=== PATIENT | male | born 1950 | race Caucasian/White ===

== ENCOUNTER 2019-03-24 11:47 | Observation (INO) ==
[2019-03-24] MEDS ORDERED: 0.9 % Sodium Chloride 500 ML IVC ONE (12:38)
--- NOTE | 2019-03-24 12:41 | Emergency Department Note ---
Disposition Clinical Impression: General weakness, Elevated troponin Disposition: Admitted As Inpatient Condition: Fair Referrals: Jeremy Hyde DO [Primary Care Provider] - Forms: ED Satisfaction Letter, Work/School Release Time of Disposition: 16:28 General Adult HPI - General Chief complaint: ED General Medical Stated complaint: gen weakness, fluctuating bp Time Seen by Provider: 03/24/19 12:28 Source: patient Mode of arrival: private vehicle Limitations: no limitations Nursing Notes Reviewed: Yes Vital Signs Reviewed: Yes - History of Present Illness Pt Subjective Complaint: Generalized weakness Onset (ago): day(s) (This is the second day) Location: other (Generalized) Pain Severity: severe (He rates it as severe yesterday. Today he feels better than he did yesterday but he still feels like he does not have energy.) Consistency: constant, Improving Improves with: rest Worsens with: other (Exertion) Associated symptoms: Reports: denies other symptoms, other (Currently denies any other associated symptoms. He does report that Monday he had some edema to his bilateral lower extremities after being out side and doing all kinds the yard work. By Monday the edema in the legs had gone but the generalized weakness had begun) - Related Data Home Medications Medication Instructions Recorded Confirmed Acetaminophen w/Cod 300-30 mg 1 each PO Q6HR PRN 03/13/18 03/24/19 [Tylenol w/Codeine #3] Aspirin Enteric Coated [Aspirin EC] 81 mg PO DAILY 03/13/18 03/24/19 Chlorzoxazone [Lorzone] 500 mg PO DAILY 03/13/18 03/24/19 Furosemide [Lasix] 40 mg PO DAILY 03/13/18 03/24/19 NIFEdipine XL (24 HR) [Procardia 30 mg PO DAILY 03/13/18 03/24/19 XL] Omeprazole [PriLOSEC] 20 mg PO DAILY 03/13/18 03/24/19 Propranolol HCl [Inderal LA] 120 mg PO DAILY 03/13/18 03/24/19 Simvastatin [Zocor] 40 mg PO HS 03/13/18 03/24/19 Trazodone HCl 100 mg PO DAILY 03/13/18 03/24/19 Allergies Allergy/AdvReac Type Severity Reaction Status Date / Time No Known Allergies Allergy Verified 03/13/18 00:21 All systems ED: reviewed and negative except as stated. Constitutional: Denies: fever, chills ENT ED: Denies: ear pain, throat pain, congestion Cardiovascular: Denies: chest pain, palpitations Respiratory: Denies: cough, dyspnea, wheezes Gastrointestinal: Denies: abdominal pain, nausea, vomiting, diarrhea Genitourinary: Denies: urgency, dysuria, frequency Musculoskeletal: Denies: back pain Integumentary: Denies: rash Neurological: Denies: headache, numbness, paresthesias Past Medical History - Past Medical History Attestation: Yes The following information was validated with the patient. Source: patient, old records reviewed, obtained from family, nursing notes reviewed Medical history: Reports: aortic aneurysm, cardiomyopathy, CHF, diabetes, hyperlipidemia, hypertension, myocardial infarction, TIA, valvular heart disease Psychiatric history: Reports: no psych history - Social History Smoking Status: Former smoker Smokeless Tobacco Status: No Alcohol use: Reports: rarely Drug use: Reports: none Physical Exam - General Limitations: no limitations General appearance: alert, in no apparent distress - Head Head exam: atraumatic, normocephalic, normal inspection - Eye Eye exam: Present: normal appearance, PERRL, EOMI. Absent: scleral icterus, conjunctival injection - ENT ENT exam: normal exam, normal oropharynx, mucous membranes moist, TM's normal bilaterally, normal external ear exam - Neck Neck exam: Present: normal inspection, full ROM, trachea midline. Absent: meningismus - Chest Chest inspection: Present: normal inspection, symmetric chest wall rise. Absent: tenderness - Respiratory Respiratory exam: Present: normal lung sounds bilaterally. Absent: respiratory distress, wheezes - Cardiovascular Cardiovascular exam: Present: regular rate, normal rhythm, normal heart sounds - Abdominal Exam Abdominal exam: Present: soft, Non-Tender, normal bowel sounds. Absent: distention - Extremities Exam Extremities exam: Present: normal inspection. Absent: tenderness, pedal edema - Neurological Exam Neurological exam: Present: alert, oriented X3. Absent: motor sensory deficit - Psychiatric Psychiatric exam: Present: normal affect, normal mood - Skin Skin exam: Present: warm, dry. Absent: rash Course Course Narrative: Patient presents with generalized weakness. He has a today where he just feels like is got no get up and go. No focal weakness. Today he feels better than he did yesterday but he did not come in yesterday. Monday he worked out in the yard in the heat for a long time. By the end of the day he had developed some edema to his bilateral lower extremities. That resolved by Monday morning but he was feeling that generalized weakness on Monday. He does not describe any other focal issue. No other focal issues are found on physical exam. I am a bit suspicious that this may be related to exerting himself on Monday. Already does have some cardiac issues to worry about. Ocular abnormalities also have to be considered. I am going to give the patient a little bit of IV fluids and do a workup on the patient looking for infections and electrolyte abnormalities and cardiac issues and anemia and other causes of generalized weakness.'s on diagnostic results and reevaluation. - Reevaluation(s) Reevaluation #1: Labs look good but initial troponin came back elevated. He also had an initial elevated lactate. We repeated those labs. Lactate is back to normal. Troponin has not changed. The rest of the workup was unremarkable. So we have a patient with generalized weakness after a physically taxing day on Monday who now has elevated troponins. We will going to admit him to the hospital for further evaluation. Already spoken with the hospitalist who accepted the patient for admission. Time: 16:27 - Consultations Consultation #1: Dr. Obrien, hospitalist - I discussed the case with the hospice. He accepted the patient for admission. Time: 16:20 Vital Signs Temperature 98 F 03/24/19 11:49 Pulse Rate 53 03/24/19 11:49 Respiratory Rate 18 03/24/19 11:49 Blood Pressure 116/67 03/24/19 11:49 O2 Sat by Pulse Oximetry 55 03/24/19 11:49 Temperature 98 F 03/24/19 11:49 Pulse Rate 72 03/24/19 15:55 Respiratory Rate 18 03/24/19 15:55 Blood Pressure 112/84 03/24/19 15:55 O2 Sat by Pulse Oximetry 96 03/24/19 15:55 Oxygen Delivery Oxygen Delivery Room Air Medical Decision Making - Medical Records Medical records reviewed: Yes I reviewed the patient's medical records. - Lab Data Lab results reviewed: Yes I reviewed the patient's lab results. Result diagrams: 03/24/19 12:51 03/24/19 12:51 Lab Results 03/24/19 03/24/19 03/24/19 Range/Units 12:51 12:51 12:51 WBC 9.3 (4.3-11.1) K/mcL RBC 4.80 (4.19-5.50) M/mcL Hgb 15.1 (12.9-16.9) g/dL Hct 43.8 (37.5-50.1) % MCV 91.3 (83.0-100.0) fL MCH 31.5 (28.0-33.3) pg MCHC 34.5 (31.6-35.5) g/dL RDW 13.9 (11.5-14.5) % Plt Count 223 (140-400) K/mcL MPV 10.3 (9.4-12.4) fL Immature Gran % 1.1 (0-4) % Seg Neutrophils % 86.7 % Lymphocytes % 6.5 % Monocytes % 5.5 % Eosinophils % 0.0 % Basophils % 0.2 % Neutrophils # 8.0 (1.6-8.9) K/mcL Lymphocytes # 0.6 (0.6-4.6) K/mcL Monocytes # 0.5 (0.0-1.3) K/mcL Eosinophils # 0.0 (0.0-0.6) K/mcL Basophils # 0.0 (0.0-0.2) K/mcL Sodium 140 (136-145) mEq/L Potassium 3.6 (3.5-5.1) mEq/L Chloride 104 (98-107) mEq/L Carbon Dioxide 26 (23-29) mEq/L BUN 39 H (8-23) mg/dL Creatinine 1.27 (0.70-1.30) mg/dL Est GFR ( Amer) > 60 (> 60) Est GFR (Non-Af Amer) 56 L (> 60) BUN/Creatinine Ratio 31 H (6-26) Glucose 216 H (70-105) mg/dL Calculated Osmolality 306 H (280-300) Lactic Acid (0.5-2.2) mmol/L Calcium 9.1 (8.6-10.3) mg/dL Total Bilirubin (0.3-1.0) mg/dL Direct Bilirubin (0.0-0.2) mg/dL Indirect Bilirubin (0.0-1.2) mg/dL AST (13-39) Units/L ALT (7-52) Units/L Alkaline Phosphatase (34-104) Units/L Troponin I (< 0.04) ng/mL B-Natriuretic Peptide 625 H (Less than 100) pg/mL Serum Total Protein (6.4-8.9) g/dL Albumin (3.5-5.7) g/dL Globulin (2.4-3.5) g/dL Albumin/Globulin Ratio (1.1-2.2) Urine Color (Yellow) Urine Clarity (Clear) Urine pH (5.0-8.0) pH Units Ur Specific [place] (1.010-1.025) Urine Protein (Neg-Trace) mg/dL Urine Glucose (UA) (Normal) mg/dL Urine Ketones (Negative) mg/dL Urine Blood (Negative) Urine Nitrite (Negative) Urine Bilirubin (Negative) Urine Urobilinogen (Normal) mg/dL Ur Leukocyte Esterase (Negative) Ur Culture Indicated? (NO) 03/24/19 03/24/19 03/24/19 Range/Units 12:51 12:51 14:09 WBC (4.3-11.1) K/mcL RBC (4.19-5.50) M/mcL Hgb (12.9-16.9) g/dL Hct (37.5-50.1) % MCV (83.0-100.0) fL MCH (28.0-33.3) pg MCHC (31.6-35.5) g/dL RDW (11.5-14.5) % Plt Count (140-400) K/mcL MPV (9.4-12.4) fL Immature Gran % (0-4) % Seg Neutrophils % % Lymphocytes % % Monocytes % % Eosinophils % % Basophils % % Neutrophils # (1.6-8.9) K/mcL Lymphocytes # (0.6-4.6) K/mcL Monocytes # (0.0-1.3) K/mcL Eosinophils # (0.0-0.6) K/mcL Basophils # (0.0-0.2) K/mcL Sodium (136-145) mEq/L Potassium (3.5-5.1) mEq/L Chloride (98-107) mEq/L Carbon Dioxide (23-29) mEq/L BUN (8-23) mg/dL Creatinine (0.70-1.30) mg/dL Est GFR ( Amer) (> 60) Est GFR (Non-Af Amer) (> 60) BUN/Creatinine Ratio (6-26) Glucose (70-105) mg/dL Calculated Osmolality (280-300) Lactic Acid 2.4 H (0.5-2.2) mmol/L Calcium (8.6-10.3) mg/dL Total Bilirubin 0.5 (0.3-1.0) mg/dL Direct Bilirubin 0.1 (0.0-0.2) mg/dL Indirect Bilirubin 0.4 (0.0-1.2) mg/dL AST 12 L (13-39) Units/L ALT 19 (7-52) Units/L Alkaline Phosphatase 80 (34-104) Units/L Troponin I 0.05 H* (< 0.04) ng/mL B-Natriuretic Peptide (Less than 100) pg/mL Serum Total Protein 6.4 (6.4-8.9) g/dL Albumin 3.4 L (3.5-5.7) g/dL Globulin 3.0 (2.4-3.5) g/dL Albumin/Globulin Ratio 1.1 (1.1-2.2) Urine Color Yellow (Yellow) Urine Clarity Clear (Clear) Urine pH 5.5 (5.0-8.0) pH Units Ur Specific [place] 1.010 (1.010-1.025) Urine Protein Negative (Neg-Trace) mg/dL Urine Glucose (UA) Normal (Normal) mg/dL Urine Ketones Negative (Negative) mg/dL Urine Blood Negative (Negative) Urine Nitrite Negative (Negative) Urine Bilirubin Negative (Negative) Urine Urobilinogen Normal (Normal) mg/dL Ur Leukocyte Esterase Negative (Negative) Ur Culture Indicated? NO (NO) 03/24/19 03/24/19 Range/Units 15:40 15:40 WBC (4.3-11.1) K/mcL RBC (4.19-5.50) M/mcL Hgb (12.9-16.9) g/dL Hct (37.5-50.1) % MCV (83.0-100.0) fL MCH (28.0-33.3) pg MCHC (31.6-35.5) g/dL RDW (11.5-14.5) % Plt Count (140-400) K/mcL MPV (9.4-12.4) fL Immature Gran % (0-4) % Seg Neutrophils % % Lymphocytes % % Monocytes % % Eosinophils % % Basophils % % Neutrophils # (1.6-8.9) K/mcL Lymphocytes # (0.6-4.6) K/mcL Monocytes # (0.0-1.3) K/mcL Eosinophils # (0.0-0.6) K/mcL Basophils # (0.0-0.2) K/mcL Sodium (136-145) mEq/L Potassium (3.5-5.1) mEq/L Chloride (98-107) mEq/L Carbon Dioxide (23-29) mEq/L BUN (8-23) mg/dL Creatinine (0.70-1.30) mg/dL Est GFR ( Amer) (> 60) Est GFR (Non-Af Amer) (> 60) BUN/Creatinine Ratio (6-26) Glucose (70-105) mg/dL Calculated Osmolality (280-300) Lactic Acid 1.8 (0.5-2.2) mmol/L Calcium (8.6-10.3) mg/dL Total Bilirubin (0.3-1.0) mg/dL Direct Bilirubin (0.0-0.2) mg/dL Indirect Bilirubin (0.0-1.2) mg/dL AST (13-39) Units/L ALT (7-52) Units/L Alkaline Phosphatase (34-104) Units/L Troponin I 0.05 H* (< 0.04) ng/mL B-Natriuretic Peptide (Less than 100) pg/mL Serum Total Protein (6.4-8.9) g/dL Albumin (3.5-5.7) g/dL Globulin (2.4-3.5) g/dL Albumin/Globulin Ratio (1.1-2.2) Urine Color (Yellow) Urine Clarity (Clear) Urine pH (5.0-8.0) pH Units Ur Specific [place] (1.010-1.025) Urine Protein (Neg-Trace) mg/dL Urine Glucose (UA) (Normal) mg/dL Urine Ketones (Negative) mg/dL Urine Blood (Negative) Urine Nitrite (Negative) Urine Bilirubin (Negative) Urine Urobilinogen (Normal) mg/dL Ur Leukocyte Esterase (Negative) Ur Culture Indicated? (NO) - Radiology Data Radiology results reviewed: Yes I reviewed the patient's radiology results. - EKG Data EKG #1 EKG attestation: Yes I reviewed and interpreted this EKG. EKG results narrative: Twelve-lead EKG performed at 12:01 PM. Ordered, reviewed and entered by ED physician shows atrial fibrillation at a rate of 85 but not much R to R variation. Normal axis but he has a left bundle branch block. T-wave inversions consistent with left bundle branch block. No obvious acute ischemic changes.
[2019-03-24 12:57] LABS: Basophils % 0.2 %; Hematocrit 43.8 % (37.5-50.1); Hemoglobin 15.1 g/dL (12.9-16.9); Immature Granulocytes % 1.1 % (0-4); Lymphocytes # 0.6 K/mcL (0.6-4.6); Lymphocytes % 6.5 %; Mean Corpuscular HGB Conc 34.5 g/dL (31.6-35.5); Mean Corpuscular Hemoglobin 31.5 pg (28.0-33.3); Mean Corpuscular Volume 91.3 fL (83.0-100.0); Mean Platelet Volume 10.3 fL (9.4-12.4); Monocytes # 0.5 K/mcL (0.0-1.3); Monocytes % 5.5 %; Platelet Count 223 K/mcL (140-400); Red Cell Distribution Width 13.9 % (11.5-14.5); Segmented Neutrophils % 86.7 %; White Blood Count 9.3 K/mcL (4.3-11.1)
[2019-03-24 13:12] LABS: Albumin 3.4 g/dL (3.5-5.7); Albumin/Globulin Ratio 1.1 (1.1-2.2); Bilirubin,Direct 0.1 mg/dL (0.0-0.2); Bilirubin,Indirect 0.4 mg/dL (0.0-1.2); Bilirubin,Total 0.5 mg/dL (0.3-1.0); Total Protein 6.4 g/dL (6.4-8.9)
[2019-03-24 13:13] LABS: BUN/Creatinine Ratio 31 (6-26); Blood Urea Nitrogen 39 mg/dL (8-23); Calcium 9.1 mg/dL (8.6-10.3); Carbon Dioxide 26 mEq/L (23-29); Chloride 104 mEq/L (98-107); Glucose 216 mg/dL (70-105); Osmolality,Calculated 306 (280-300); Potassium 3.6 mEq/L (3.5-5.1); Sodium 140 mEq/L (136-145); eGFR For African Americans > 60 (> 60); eGFR For Non-African Americans 56 (> 60)
[2019-03-24 13:19] LABS: Troponin I 0.05 ng/mL (< 0.04)
[2019-03-24 14:16] LABS: Bilirubin,Urine Negative (Negative); Blood,Urine Negative (Negative); Clarity,Urine Clear (Clear); Color,Urine Yellow (Yellow); Glucose,Urine (UA) Normal (Normal); Ketones,Urine Negative (Negative); Leukocyte Esterase,Urine Negative (Negative); Nitrite,Urine Negative (Negative); PH,Urine 5.5 pH Units (5.0-8.0); Protein,Urine Negative (Neg-Trace); Urobilinogen,Urine Normal (Normal)
[2019-03-24] MEDS ORDERED: 0.9 % Sodium Chloride 1,000 ML IVC SCH (16:54)
[2019-03-24] MEDS ORDERED: Naloxone 0.4 MG/ML INJ IVP PRN (16:54)
[2019-03-24] MEDS ORDERED: *HR* Acetaminophen w/Cod 300-30 mg 1 TAB TABLET PO PRN (16:54)
[2019-03-24] MEDS: 0.45 % Sodium Chloride w/KCl 20 MEQ/1,000 ML MLS IVC SCH (20:40)
[2019-03-25 05:38] LABS: Thyroid Stimulating Hormone 0.377 mcIU/mL (0.340-5.600)
[2019-03-25 07:09] LABS: Alanine Aminotransferase 17 Units/L (7-52); Albumin 3.2 g/dL (3.5-5.7); Albumin/Globulin Ratio 1.3 (1.1-2.2); Alkaline Phosphatase 66 Units/L (34-104); Aspartate Amino Transferase 11 Units/L (13-39); BUN/Creatinine Ratio 33 (6-26); Bilirubin,Total 0.5 mg/dL (0.3-1.0); Blood Urea Nitrogen 33 mg/dL (8-23); Calcium 8.7 mg/dL (8.6-10.3); Carbon Dioxide 26 mEq/L (23-29); Chloride 106 mEq/L (98-107); Globulin 2.4 g/dL (2.4-3.5); Glucose 137 mg/dL (70-105); Osmolality,Calculated 301 (280-300); Potassium 3.4 mEq/L (3.5-5.1); Sodium 141 mEq/L (136-145); Total Protein 5.6 g/dL (6.4-8.9); eGFR For African Americans > 60 (> 60); eGFR For Non-African Americans > 60 (> 60)
[2019-03-25] MEDS: 0.45 % Sodium Chloride w/KCl 20 MEQ/1,000 ML MLS IVC SCH (08:14)
[2019-03-25] MEDS ORDERED: Propranolol LA (24 HR) 60 MG CAP.SA.24H PO SCH (09:00)
[2019-03-25] MEDS ORDERED: Furosemide 40 MG TABLET PO SCH (09:00)
[2019-03-25] MEDS ORDERED: traZODone 50 MG TABLET PO SCH ×2 (09:00→21:00)
[2019-03-25] MEDS ORDERED: NIFEdipine XL (24 HR) 30 MG TAB.ER.24 PO SCH (09:00)
[2019-03-25] MEDS ORDERED: CHLORZOXAZONE 500 MG PO SCH (09:00)
[2019-03-25] MEDS ORDERED: Aspirin Enteric Coated 81 MG Tablet PO SCH (09:00)
[2019-03-25 10:05] VITALS: BP 115/75
--- NOTE | 2019-03-25 12:19 | Internal Med History&Physical ---
Date of Encounter: 03/25/19 Time of Encounter: 11:30 Assessment and Plan (1) Elevated troponin Current visit: Yes Status: Acute Serial troponins ordered through emergency room. (2) Atrial fibrillation Current visit: Yes Status: Acute Duration unknown. He will start Eliquis. Qualifiers: Atrial fibrillation type: unspecified Qualified Code(s): I48.91 - Unspecified atrial fibrillation (3) Acute kidney injury Current visit: Yes Status: Acute Creatinine has decreased to 1.01 with estimated GFR> 60 with hydration. His PCP can monitor labs. (4) Hypokalemia Current visit: Yes Status: Acute Potassium level has decreased to 3.4 today. Supplemental potassium will be given. (5) Hypertension Current visit: Yes Status: Chronic Continue Lasix, Procardia XL, and Inderal LA. Qualifiers: Hypertension type: essential hypertension Qualified Code(s): I10 - Essential (primary) hypertension (6) General weakness Current visit: Yes Status: Acute Improved. He states he feels near his baseline and wishes to be discharged home. Internal Medicine - H&P: HPI Chief complaint: Weakness Admitted From: Emergency Dept Plans for Post Hospital Care: Home History of present illness: Mr. Clarke is a 69 year old male who came to emergency room stating he developed weakness the evening of March 22 after mowing his yard earlier in the day. The weakness persisted over the next 2 days with slight improvement. He denies vomiting diarrhea pain fevers or chills. He came to emergency room and was evaluated and was found to have acute renal insufficiency and slight elevation of troponin. [facility] care [facility]. He states he feels significantly improved at the present time and wishes to be discharged home. He denies previous similar episodes of weakness. Cardiovascular history is significant for hypertension and aortic stenosis with aortic valve replacement 2002. He has aneurysmal dilatation of the ascending aorta at approximately 5 cm diameter on most recent chest CTA 01/23/2019. He follows with thoracic surgeon at [facility]. He thinks he had an [place] 2002. Regadenoson EST 08/07/2015 showed perfusion imaging negative for ischemia or infarct. EKG was nondiagnostic due to baseline left bundle branch block. He has history of heart failure. Echocardiogram 02/05/2018 showed LVEF 55%. 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 There was mild to moderate tricuspid regurgi tation. The interventricular septum and posterior wall thickness measurements were 1.83 and 0.83 cm respectively. There was LAE at 4.60 cm. E/A ratio was 1.2. He has known left bundle branch block. He denies DVT or pulmonary embolus. He does not recall being told he has atrial fibrillation. Past Med Surg Social Fam HX - Past Medical History Medical history: aortic aneurysm, cardiomyopathy, CHF, diabetes, hyperlipidemia, hypertension, myocardial infarction, TIA, valvular heart disease Additional medical history: heart valvue replacement Psychiatric history: no psych history - Past Surgical History Additional surgical history: deviated septum - Social History Smoking Status: Former smoker Smokeless Tobacco Status: No Alcohol use: rarely Drug use: none Internal Medicine - H&P: Meds Acetaminophen w/Cod 300-30 mg [Tylenol w/Codeine #3] 1 each PO Q6HR PRN 03/13/18 [History] Aspirin Enteric Coated [Aspirin EC] 81 mg PO DAILY 03/13/18 [History] Chlorzoxazone [Lorzone] 500 mg PO DAILY 03/13/18 [History] Furosemide [Lasix] 40 mg PO DAILY 03/13/18 [History] NIFEdipine XL (24 HR) [Procardia XL] 30 mg PO DAILY 03/13/18 [History] Omeprazole [PriLOSEC] 20 mg PO DAILY 03/13/18 [History] Propranolol HCl [Inderal LA] 120 mg PO DAILY 03/13/18 [History] Simvastatin [Zocor] 40 mg PO HS 03/13/18 [History] Trazodone HCl 100 mg PO DAILY 03/13/18 [History] Allergy/AdvReac Type Severity Reaction Status Date / Time No Known Allergies Allergy Verified 03/13/18 00:21 All Systems PM: A 10-system review of systems was performed and is negative for pertinent findings except as documented above in the HPI. Review of systems: Gen.: He states his weight has fluctuated without significant overall change for several months Cardiovascular: As per history of present illness Respiratory: He smoked for approximately 10 years in the 1970s/80s. He denies chronic lung disease and does not use home oxygen GI: He denies disorders of his liver gallbladder or exocrine pancreas : He denies hematuria dysuria or kidney stones Neurologic: He had a TIA 2002 without recurrence. He denies large distribution strokes or seizures. Endocrine: He has hyperlipidemia. He denies diabetes or thyroid disease. Hematology/oncology: Denies blood disorders cancers or anemia Psychiatric: He has depression. He denies anxiety or other mental health issues. [place] skeletal: He denies arthritis gout or other bone joint or muscle disorders. - Constitutional Vitals: Temp Pulse Resp BP Pulse Ox 97.9 F 97 16 115/75 96 03/25/19 10:03 03/25/19 10:03 03/25/19 10:03 03/25/19 10:03 03/25/19 10:03 Exam: Gen.: He is a well-developed well-nourished male resting comfortably in bed who appears in no acute distress HEENT: Head is atraumatic and normocephalic. Eyes: EOMI. There is no scleral icterus. Mouth: Mucosa is moist. Neck: Supple and nontender. There is no thyromegaly or adenopathy noted. Heart: Irregularly irregular without murmurs or gallops Lungs: No wheezes or crackles are heard. Abdomen: Soft and nontender. No masses or guarding are noted. Extremities: There is no cyanosis edema or clubbing noted. Dorsalis pedis and posterior tibial pulses are trace palpable bilaterally. Neurologic: Mental status: He is talkative and a good historian. Cranial nerves: Smile is symmetric. Forehead wrinkles bilaterally. Tongue protrudes midline. EOMI. Motor: There is no pronator drift. Cerebellar: Finger to nose is intact bilaterally. Skin: Warm and dry Internal Med - H&P Results - Labs CBC & Chem 7: 03/24/19 12:51 03/25/19 04:35 Labs: Short CBC 03/24/19 Range/Units 12:51 WBC 9.3 (4.3-11.1) K/mcL Hgb 15.1 (12.9-16.9) g/dL Hct 43.8 (37.5-50.1) % Plt Count 223 (140-400) K/mcL Neutrophils # 8.0 (1.6-8.9) K/mcL BMP 03/24/19 03/25/19 12:51 04:35 Sodium 140 141 Potassium 3.6 3.4 L Chloride 104 106 Carbon Dioxide 26 26 BUN 39 H 33 H Creatinine 1.27 1.01 Glucose 216 H 137 H Calcium 9.1 8.7 Cardiac Enzymes 03/24/19 03/24/19 03/24/19 Range/Units 12:51 15:40 22:11 Troponin I 0.05 H* 0.05 H* 0.05 H* (< 0.04) ng/mL 03/25/19 Range/Units 04:35 Troponin I 0.05 H* (< 0.04) ng/mL Liver Function 03/24/19 03/25/19 Range/Units 12:51 04:35 Total Bilirubin 0.5 0.5 (0.3-1.0) mg/dL Direct Bilirubin 0.1 (0.0-0.2) mg/dL AST 12 L 11 L (13-39) Units/L ALT 19 17 (7-52) Units/L Alkaline Phosphatase 80 66 (34-104) Units/L Albumin 3.4 L 3.2 L (3.5-5.7) g/dL Urine 03/24/19 Range/Units 14:09 Urine Color Yellow (Yellow) Urine Clarity Clear (Clear) Urine pH 5.5 (5.0-8.0) pH Units Ur Specific [place] 1.010 (1.010-1.025) Urine Protein Negative (Neg-Trace) mg/dL Urine Glucose (UA) Normal (Normal) mg/dL - Impressions ITS Impressions Chest X-Ray 03/24/19 12:37 IMPRESSION: No acute abnormality. D/ / Garett Whittaker MD / Garett Whittaker MD Interpreting Provider: Garett Whittaker MD
--- NOTE | 2019-03-25 12:35 | Discharge Summary ---
Orders not resulted at time of discharge: Pending orders 03/24/19 12:37 EKG [ECG 12 lead ECG] [ECG] Stat Date of Encounter: 03/25/19 Time of Encounter: 11:30 - Discharge Diagnosis (1) Elevated troponin Priority: Primary Status: Acute (2) Atrial fibrillation Priority: Secondary Status: Acute Qualifiers: Atrial fibrillation type: unspecified Qualified Code(s): I48.91 - Unspecified atrial fibrillation (3) Acute kidney injury Priority: Secondary Status: Acute (4) Hypokalemia Priority: Secondary Status: Acute (5) Hypertension Priority: Secondary Status: Chronic Qualifiers: Hypertension type: essential hypertension Qualified Code(s): I10 - Essential (primary) hypertension (6) General weakness Priority: Secondary Status: Resolved Hospital course: Mr. Clarke is a 69 year old male who came to emergency room stating he developed weakness the evening of March 22 after mowing his yard earlier in the day. The weakness persisted over the next 2 days with slight improvement. He denies vomiting diarrhea pain fevers or chills. He came to emergency room and was evaluated and was found to have acute renal insufficiency and slight elevation of troponin. He was [facility] to [facility] floor for ongoing care needs. Initial orders were written by the emergency room physician. I saw him on March 25 and performed a history physical and discharge. Repeat troponins remained stable at 0.05. He had no chest discomfort at any time during his hospitalization. I felt he probably had troponin leak from demand ischemia. Telemetry showed atrial fibrillation. Duration is not known. He will be started on Eliquis at discharge for CVA prophylaxis. Aspirin will be discontinued. His PCP can refer him to cardiology for further evaluation. Echocardiogram 02/05/2018 showed LAE at 4.60 cm. with moderate mitral regurgitation. IV fluids were given and creatinine had decreased to 1.01 on day of discharge. His PCP can monitor labs. Lasix was not reduced due to elevated BN peptide. Additional medication for heart failure may be needed. Potassium level decreased to 3.4 on March 25. Supplemental potassium was given prior to discharge and he will continue supplemental potassium chloride at discharge. His PCP can monitor labs. On the afternoon of March 25 he felt improved and stable for discharge home. He will follow with his PCP Dr. Jeremy Hyde within 1 week. - Time Spent with Patient Total time spent providing and/or coordinating discharge services: - Discharge Medications Prescriptions: New Apixaban [Eliquis] 5 mg PO BID #60 tablet Potassium Chloride 10 meq PO DAILY #30 tab.er.prt Continued Furosemide [Lasix] 40 mg PO DAILY Omeprazole [PriLOSEC] 20 mg PO DAILY Simvastatin [Zocor] 40 mg PO HS Trazodone HCl 100 mg PO DAILY Propranolol HCl [Inderal LA] 120 mg PO DAILY NIFEdipine XL (24 HR) [Procardia XL] 30 mg PO DAILY Acetaminophen w/Cod 300-30 mg [Tylenol w/Codeine #3] 1 each PO Q6HR PRN PRN Reason: Pain Discontinued Aspirin Enteric Coated [Aspirin EC] 81 mg PO DAILY Chlorzoxazone [Lorzone] 500 mg PO DAILY Home Medications: Acetaminophen w/Cod 300-30 mg [Tylenol w/Codeine #3] 1 each PO Q6HR PRN 03/13/18 [History] Furosemide [Lasix] 40 mg PO DAILY 03/13/18 [History] NIFEdipine XL (24 HR) [Procardia XL] 30 mg PO DAILY 03/13/18 [History] Omeprazole [PriLOSEC] 20 mg PO DAILY 03/13/18 [History] Propranolol HCl [Inderal LA] 120 mg PO DAILY 03/13/18 [History] Simvastatin [Zocor] 40 mg PO HS 03/13/18 [History] Trazodone HCl 100 mg PO DAILY 03/13/18 [History] Apixaban [Eliquis] 5 mg PO BID #60 tablet 03/25/19 [Rx] Potassium Chloride 10 meq PO DAILY #30 tab.er.prt 03/25/19 [Rx] Allergies/Adverse Reactions: Allergy/AdvReac Type Severity Reaction Status Date / Time No Known Allergies Allergy Verified 03/13/18 00:21 Date of admission: 03/24/19 16:42 Primary care physician: Jeremy Hyde DO - Constitutional Vitals: Temp Pulse Resp BP Pulse Ox 97.9 F 97 16 115/75 96 03/25/19 10:03 03/25/19 10:03 03/25/19 10:03 03/25/19 10:03 03/25/19 10:03 - Patient Status Disposition: Home, Self-Care Condition: Fair - Discharge Instructions Follow Up With: Jeremy Hyde DO [Primary Care Provider] - 1 week - Diet and Activity Activity: resume usual activities as tolerated Diet: advance to your usual diet
--- NOTE | 2019-03-25 22:38 | Electrocardiograph Report ---
[place] [address] Test Date: 2019-03-24 Pat Name: Roshan Clarke Department: EDP-12 Room: [facility] Gender: M Slag Wheeler: : 1950 Requested By: Valentín Vidal Order Number: [id number] Reading MD: Antonio Alfaro Measurements Intervals [place] Rate: 85 P: DC: QRS: -24 QRSD: 162 T: 170 QT: 388 QTc: 462 Interpretive Statements Atrial fibrillation Left bundle branch block Electronically Signed On 03-25-2019 22:36:59 EDT by Antonio Alfaro
== END 2019-03-25 13:43 | disposition home or self-care (01) ==
LOC: EMEROOPIK 11:47 → INPPIK 11:47
PROVIDERS: ADMIT Internal Medicine; ATTEND Internal Medicine